=== PATIENT | male | born 1960 | race African-American/Black ===

== ENCOUNTER 2018-12-29 18:54 | Emergency (ER) | payer SELFPAY ==
[2018-12-29] MEDS ORDERED: HYDROcodone/Acetaminophen 5/325 mg Tablet ONE (19:30)
--- NOTE | 2018-12-29 20:17 | RAD ---
THREE VIEWS LEFT SHOULDER: 12/29/18 HISTORY: Left shoulder pain. AP internally, externally and scapular Y-views of the left shoulder is obtained. The left shoulder is unremarkable. No evidence of left shoulder fractures, subluxations or bony lesio ns seen. IMPRESSION: Normal three views left shoulder. POS: [facility]
== END 2018-12-29 21:05 | disposition home or self-care (01) ==
LOC: NAV ERS 18:54
DX: M25.512 Pain in left shoulder (principal); K21.9 Gastro-esophageal reflux disease without esophagitis; E78.5 Hyperlipidemia, unspecified; F17.210 Nicotine dependence, cigarettes, uncomplicated

== ENCOUNTER 2021-11-02 13:45 | Emergency (ER) | payer OTHER, SELFPAY ==
[2021-11-02] MEDS ORDERED: Amoxicillin/Potassium Clav 875 MG TAB ONE (14:21)
[2021-11-02] MEDS ORDERED: Ketorolac Tromethamine 60 MG/2 ML VIAL ONE (14:21)
== END 2021-11-02 14:44 | disposition home or self-care (01) ==
LOC: NAV ERS 13:45
DX: K04.7 Periapical abscess without sinus (principal); K02.9 Dental caries, unspecified; K21.9 Gastro-esophageal reflux disease without esophagitis; E78.5 Hyperlipidemia, unspecified; F17.210 Nicotine dependence, cigarettes, uncomplicated; Z79.899 Other long term (current) drug therapy
CPT/HCPCS: 96372; 99282; J1885

== ENCOUNTER 2023-10-19 11:06 | Emergency (ER) | payer OTHER, SELFPAY | END 2023-10-19 12:03 | disposition home or self-care (01) | LOC: NAV ERS 11:06 | DX: N44.8 Other noninflammatory disorders of the testis (principal); C67.9 Malignant neoplasm of bladder, unspecified; I10 Essential (primary) hypertension; E78.00 Pure hypercholesterolemia, unspecified; Z79.899 Other long term (current) drug therapy | CPT/HCPCS: 99283 ==

== ENCOUNTER 2024-01-24 15:32 | Emergency (ER) | payer OTHER ==
[2024-01-24] MEDS ORDERED: Ketorolac Tromethamine 60 MG/2 ML VIAL ONE (16:42)
== END 2024-01-24 18:02 | disposition home or self-care (01) ==
LOC: NAV ERS 15:32
DX: S23.41XA Sprain of ribs, initial encounter (principal); I10 Essential (primary) hypertension; F17.210 Nicotine dependence, cigarettes, uncomplicated; W22.8XXA Striking against or struck by other objects, initial encounter; Z79.899 Other long term (current) drug therapy
CPT/HCPCS: 96372; J1885